=== PATIENT | male | born 1975 | race African-American/Black ===

== ENCOUNTER 2016-12-28 01:26 | Emergency (ER) | payer OTHER ==
[~2016-12-28 01:26] MED LIST: ANEXSIA 7.5/3251 TA1 PO
[2017-01-15] MEDS ORDERED: NEURONTIN300 MG PO (08:42)
[2017-01-15] MEDS ORDERED: OXYCODON HCL-1 UDTAB PO (10:10)
[2017-01-15] MEDS ORDERED: FERRO-TIME325 MG PO (10:11)
[2017-01-15] MEDS ORDERED: METOPROLOL TAR25 MG PO (10:11)
[2017-01-15] MEDS ORDERED: BUSPAR15 M2 PO (10:12)
[2017-01-15] MEDS ORDERED: REMERON15 MG PO (10:12)
[2017-01-15] MEDS ORDERED: CARTIA XT120 MG PO (10:13)
[2017-01-15] MEDS ORDERED: EASY-LAX100 MG PO (10:13)
[2017-01-15] MEDS ORDERED: NICOTINE1 EACH TD (10:14)
[2017-01-15] MEDS ORDERED: LEVALBUTER1.25 MG/2 INH (10:14)
== END 2016-12-28 01:44 | disposition home or self-care (01) ==
LOC: CED 01:26
DX: G62.9 Polyneuropathy, unspecified (principal); F17.200 Nicotine dependence, unspecified, uncomplicated
CPT/HCPCS: 99282

== ENCOUNTER → 2017-01-15 | Outpatient (CLI) | payer OTHER ==
[~2017-01-15] MED LIST changes: +BUSPAR15 M2 PO; +CARTIA XT120 MG PO; +EASY-LAX100 MG PO; +FERRO-TIME325 MG PO; +LEVALBUTER1.25 MG/2 INH; +METOPROLOL TAR25 MG PO; +NEURONTIN300 MG PO; +NICOTINE1 EACH TD; +OXYCODON HCL-1 UDTAB PO; +REMERON15 MG PO
--- NOTE | ~2017-01-15 | XA166 ---
[facility] A Service of [facility] RADIOLOGY TEXT RESULTS PATIENT: RENAN MADRID LOCATION: CIVR : 75 UNIT #: [id number] AGE: [address]: VINI JASON MD SEX: M ORDER DR: [id number] [facility] [address] [place], [place] [address] [id number] O MR#: [id number] Acc #: [id number] NAME: RENAN MADRID : 1975 SEX: M STUDY DATE/TIME: 01/15/2017 9:27 UNIT: [facility]IVR ROOM: STUDY DESCRIPTION: XA PICC Line Placement WO Port Attending Physician: Vini Jason M.D. Ordering Physician: Vini Jason M.D. Primary Care Physician: Marques Wharton M.D. MEDICAL IMAGING REPORT This report is preliminary unless electronic signature is present EXAM PICC line insertion. INDICATION 41-year-old male who needs IV access for chemotherapy. PRE-PROCEDURE The procedure was explained to the patient and/or patient customer loyalty representative including risks, benefits, potential complications and potential for alternative forms of treatment. Informed consent was obtained, and prior to initiating the procedure a formal timeout procedure was performed. PROCEDURE Using full standard sterile barrier technique, including caps, gowns, gloves, masks, as well as sterile skin preparation and standard sterile draping, the left arm was prepped and draped in the usual fashion, and real-time sterile ultrasound guidance was used to localize the left basilic vein and to confirm vessel patency. A hard copy ultrasound image was recorded. After local anesthesia with 1% Xylocaine, the vein was punctured using real-time sterile ultrasound guidance, and an 0.018 guidewire was advanced into the superior vena cava, using fluoroscopic guidance. A 5-Venezuelan 45 cm double-lumen PICC was then measured and deployed with the tip positioned in the superior vena cava. The position of the line was documented with a radiographic image. The line was secured in place with an adhesive dressing and an antibiotic patch was applied. Total fluoro time was 0.1 minutes. A single fluoroscopic spot image was obtained. the reference air kerma was 1 mGy. IMPRESSION 1. Successful placement of a 5-Venezuelan double-lumen PowerPICC via the left arm under ultrasound and fluoroscopic guidance. The tip of the STS. [facility] A Service of [facility] & [facility] RADIOLOGY TEXT RESULTS PATIENT: RENAN MADRID LOCATION: [facility] : 75 UNIT #: [id number] AGE: [address]: VINI JASON MD SEX: M ORDER DR: PICC is in good position in the superior vena cava. 2. A single fluoroscopic spot image was obtained. Dictated by... Evens Mariscal M.D. THIS IS AN ELECTRONICALLY VERIFIED REPORT Evens Mariscal M.D. at 01/15/2017 4:31 PM VIOLETTE/armin TD: 01/15/2017 16:00 JOB #: [id number] MEDICAL IMAGING REPORT Page 1 of 1 COPY
--- NOTE | ~2017-01-15 | XA80 ---
[facility] A Service of [facility] RADIOLOGY TEXT RESULTS PATIENT: RENAN MADRID LOCATION: [facility] : 75 UNIT #: [id number] AGE: [address]: VINI JASON MD SEX: M ORDER DR: [id number] [facility] [address] [place], [place] [address] [id number] O MR#: [id number] Acc #: [id number] NAME: RENAN MADRID : 1975 SEX: M STUDY DATE/TIME: 01/15/2017 10:11 UNIT: [facility]IV[facility] ROOM: STUDY DESCRIPTION: XA CVC Remove Tunneled Cath W Attending Physician: Vini Jason M.D. Ordering Physician: Vini Jason M.D. Primary Care Physician: Marques Wharton M.D. MEDICAL IMAGING REPORT This report is preliminary unless electronic signature is present EXAM Chest port removal. INDICATIONS 41-year-old male with eroded chest port. The port is eroded through the skin. There is no evidence for infection. The fluoro time was 0.1 minutes. The reference air kerma is 1 mGy. MEDICATIONS IV Versed and Fentanyl were utilized for conscious sedation. 30 minutes of sedation time was monitored by appropriately credentialed radiology nursing staff. The risks, benefits and alternatives of the procedure were discussed with the patient and informed consent was obtained. In the procedure room, a time out was performed confirming correct patient and procedure. All elements of maximum sterile-barrier technique utilized according to guidelines appropriate for the procedure. This included sterile caps, gowns, gloves, masks, drapes, 2% chlorhexadine for cutaneous antisepsis, and hand hygiene. TECHNIQUE/FINDINGS Inspection of the left chest port demonstrates that it has eroded through the skin. There is no evidence for purulent drainage or infection. The skin was anesthetized and a small incision was made over the chest port. The chest port was then removed in its entirety. There was a dime sized defect in the skin where the port had eroded through. This was packed with Iodaform gauze and a sterile dressing was applied. Spot image following explant confirmed that it was removed in its entirety. Patient will be brought back to the department in 2 days for a wound check. IMPRESSION Removal of chest port as described. [facility]. [facility] A Service of [facility] RADIOLOGY TEXT RESULTS PATIENT: RENAN MADRID LOCATION: [facility] : 75 UNIT #: [id number] AGE: [address]: VINI JASON MD SEX: M ORDER DR: Dictated by... Evens Mariscal M.D. THIS IS AN ELECTRONICALLY VERIFIED REPORT Evens Mariscal M.D. at 01/16/2017 4:34 PM ARS/to TD: 01/15/2017 16:32 JOB #: [id number] MEDICAL IMAGING REPORT Page 1 of 1 COPY
[2017-01-15 08:21] LABS: HEMATOCRIT 30.4 % (38.0-50.0); HEMOGLOBIN 10.1 gm/dL (13.0-16.0); MEAN CELL VOLUME 96.4 FL (83-96); MEAN CORPUSCULAR HEMOGLOBIN 32.1 PG (28-34); MEAN CORPUSCULAR HGB CONC 33.3 g/dL (30-36); MEAN PLATELET VOLUME 6.5 FL (6.5-11.5); RED BLOOD COUNT 3.15 X10e (3.90-5.60); RED CELL DISTRIBUTION WIDTH 24.4 % (11.0-15.5); WHITE BLOOD COUNT 8.1 X10e3 (4.0-10.5)
[2017-01-15 08:36] LABS: PARTIAL THROMBOPLASTIN TIME 24.7 SECONDS (23.5-31.3)
== END | disposition home or self-care (01) ==
LOC: CSSDAY 07:54
PROVIDERS: Internal Medicine Hematology & Oncology
DX: Z45.2 Encounter for adjustment and management of vascular access device (principal); C34.31 Malignant neoplasm of lower lobe, right bronchus or lung; R07.9 Chest pain, unspecified; C78.7 Secondary malignant neoplasm of liver and intrahepatic bile duct; R59.0 Localized enlarged lymph nodes; G47.00 Insomnia, unspecified; D50.9 Iron deficiency anemia, unspecified; I10 Essential (primary) hypertension; R53.83 Other fatigue; Z79.899 Other long term (current) drug therapy; Z79.891 Long term (current) use of opiate analgesic
CPT/HCPCS: 36415; 76937; 77001; 85027; 85610; 85730; C1751; J1642; J2250; J3010

== ENCOUNTER → 2017-01-17 | Outpatient (CLI) | payer OTHER ==
--- NOTE | ~2017-01-17 | XA231 ---
[facility] A Service of [facility] RADIOLOGY TEXT RESULTS PATIENT: RENAN MADRID LOCATION: [facility] : 75 UNIT #: [id number] AGE: [address]: Evens Mariscal MD SEX: M ORDER DR: [id number] [facility] [address] [place], [place] [address] [id number] O MR#: [id number] Acc #: [id number] NAME: RENAN MADRID : 1975 SEX: M STUDY DATE/TIME: 01/17/2017 11:18 UNIT: [facility] ROOM: STUDY DESCRIPTION: XA Consult Attending Physician: Evens Mariscal M.D. Referring Physician: Evens Mariscal M.D. Primary Care Physician: Marques Wharton M.D. MEDICAL IMAGING REPORT This report is preliminary unless electronic signature is present EXAM Port check. HISTORY Infected port pocket. FINDINGS There is no significant redness around the pocket. No pus could be expressed. The Iodoform gauze was pulled out and replaced with fresh Iodoform gauze. The patient is to follow up with another wound check on Friday. IMPRESSION Satisfactory healing of the port pocket. Iodoform gauze was exchanged. Dictated by... Santana Sarabia M.D. THIS IS AN ELECTRONICALLY VERIFIED REPORT Santana Sarabia M.D. at 01/17/2017 4:54 PM LUIS ENRIQUE/armin TD: 01/17/2017 12:56 JOB #: [id number] MEDICAL IMAGING REPORT Page 1 of 1 COPY
== END | disposition home or self-care (01) ==
LOC: CIVR 10:35
DX: Z48.89 Encounter for other specified surgical aftercare (principal)
CPT/HCPCS: 76140

== ENCOUNTER → 2017-01-20 | Outpatient (CLI) | payer OTHER ==
--- NOTE | ~2017-01-20 | XA231 ---
[facility] A Service of [facility] & [facility] RADIOLOGY TEXT RESULTS PATIENT: REANN TOVAR LOCATION: [facility] : 75 UNIT #: [id number] AGE: [address]: Santana Sarabia MD SEX: M ORDER DR: [id number] [facility] [address] [place], [place] [address] [id number] O MR#: [id number] Acc #: [id number] NAME: RENAN TOVAR : 1975 SEX: M STUDY DATE/TIME: 01/20/2017 11:25 UNIT: [facility] ROOM: STUDY DESCRIPTION: XA Consult Attending Physician: Santana Sarabia M.D. Referring Physician: Santana Sarabia M.D. Ordering Physician: Santana Sarabia M.D. Primary Care Physician: Marques Wharton M.D. MEDICAL IMAGING REPORT This report is preliminary unless electronic signature is present EXAM Wound care consult dated 01/20/2017 HISTORY Infected port. FINDINGS Mr. Tovar returns following packing is on the previous port site of 01/17/2017 due to port erosion and infection. The sterile dressing as well as the Iodoform gauze was removed. The study shows no purulent drainage in the cavity. The granulation tissue is apparent in the base of the wound. The patient was then placed on wet-to-dry dressings. He is to have Home Health Care see him and repack the dressings on Friday and Friday, and is to return in 7 days for a repeat assessment. Dictated by... Gurjit Rios M.D. THIS IS AN ELECTRONICALLY VERIFIED REPORT Gurjit Rios M.D. at 01/23/2017 12:00 PM CHAYA/peace TD: 01/20/2017 19:42 JOB #: [id number] MEDICAL IMAGING REPORT Page 1 of 1 COPY
== END | disposition home or self-care (01) ==
LOC: CIVR 10:46
DX: Z48.89 Encounter for other specified surgical aftercare (principal)
CPT/HCPCS: 76140

== ENCOUNTER → 2017-01-27 | Outpatient (CLI) | payer OTHER ==
--- NOTE | ~2017-01-27 | XA231 ---
[facility] A Service of [facility] & [facility] RADIOLOGY TEXT RESULTS PATIENT: RENAN MADRID LOCATION: [facility] : 75 UNIT #: [id number] AGE: [address]: Ade Castellanos MD SEX: M ORDER DR: [id number] [facility] [address] [place], [place] [address] [id number] O MR#: [id number] Acc #: [id number] NAME: RENAN MADRID : 1975 SEX: M STUDY DATE/TIME: 01/27/2017 13:33 UNIT: [facility] ROOM: STUDY DESCRIPTION: XA Consult Attending Physician: Ade Castellanos M.D. Ordering Physician: Ade Castellanos M.D. Primary Care Physician: Marques Wharton M.D. MEDICAL IMAGING REPORT This report is preliminary unless electronic signature is present EXAM MediPort check INDICATION Mr. Madrid is a 41-year-old gentlemen who underwent removal of the MediPort which had eroded through the skin. The wound was left open and has been packed with wet to dry dressings. He returns for routine wound check. FINDINGS Patient's dressing was removed. This yielded some fibrinous exudate on the dressing itself. However, the wound site is pink and granulating nicely. No surrounding erythema is seen. Mr. Madrid's round appears to be healing nicely. We will continue wet to dry dressings. He will return for wound check on February 03, 2017. Dictated by... Ade Castellanos M.D. THIS IS AN ELECTRONICALLY VERIFIED REPORT Ade Castellanos M.D. at 01/29/2017 12:21 PM APRIL/ghulam TD: 01/28/2017 10:28 JOB #: [id number] MEDICAL IMAGING REPORT Page 1 of 1 COPY
== END | disposition home or self-care (01) ==
LOC: CIVR 12:33
DX: Z51.89 Encounter for other specified aftercare (principal)
CPT/HCPCS: 76140

== ENCOUNTER → 2017-01-27 | Outpatient (CLI) | payer OTHER ==
--- NOTE | ~2017-01-27 | CT55 ---
[facility] A Service of [facility] RADIOLOGY TEXT RESULTS PATIENT: RENAN MADRID LOCATION: [facility] : 75 UNIT #: [id number] AGE: [address]: VINI JASON MD SEX: M ORDER DR: [id number] [place] [id number] [facility] [place], [place] [address] [id number] O MR#: [id number] Acc #: [id number] NAME: RENAN MADRID : 1975 SEX: M STUDY DATE/TIME: 01/27/2017 9:20 UNIT: [facility] ROOM: STUDY DESCRIPTION: CT Chest W Con Attending Physician: Vini Jason M.D. Ordering Physician: Vini Jason M.D. Primary Care Physician: Marques Wharton M.D. MEDICAL IMAGING REPORT This report is preliminary unless electronic signature is present EXAM CT chest with contrast INDICATIONS Restaging lung cancer. Observation for metastatic disease and response to therapy. PROCEDURE Contrast-enhanced CT of the chest. 100 mL of Isovue-[address] exam was performed with one or more of the following radiation dose reduction techniques: automatic exposure control, adjustment of mA and/or kV according to patient size, and iterative reconstruction. COMPARISON 10/02/2016 FINDINGS Significant emphysema. Dominant mass in the right apex is smaller, now approximately 4.0 x 2.5 cm, previously 6.7 x 6.1 cm. Redemonstration of extensive pleural-based metastatic disease as well as hilar and mediastinal adenopathy. Right perihilar mass measures 5.0 x 5.2 cm previously 8.1 x 6.8 cm. Pleural based disease in the right lung bases is slightly improved. Mediastinal adenopathy is slightly improved as well. Scattered sclerotic osseous metastatic disease throughout the thoracic spine and scattered throughout the ribs. No definite new pulmonary nodule is seen. IMPRESSION 1. Positive response to interval therapy. Dominant mass right apex as well as pleural-based metastatic disease in the right chest is slightly smaller. Hilar and mediastinal adenopathy is also smaller. Index measurements provided above. [facility] A Service of [facility] RADIOLOGY TEXT RESULTS PATIENT: RENAN MADRID LOCATION: [facility] : 75 UNIT #: [id number] AGE: [address]: VINI JASON MD SEX: M ORDER DR: 2. Refer to the separately dictated abdomen and pelvis CT for findings below the diaphragm. Dictated by... Jay Rockwell M.D. THIS IS AN ELECTRONICALLY VERIFIED REPORT Jay Rockwell M.D. at 01/28/2017 7:11 AM ERIBERTO/agusto TD: 01/27/2017 14:07 JOB #: [id number] MEDICAL IMAGING REPORT Page 1 of 1 COPY
--- NOTE | ~2017-01-27 | CT2 ---
[facility] A Service of [facility] RADIOLOGY TEXT RESULTS PATIENT: RENAN MADRID LOCATION: [facility] : 75 UNIT #: [id number] AGE: [address]: VINI JASON MD SEX: M ORDER DR: [id number] [place] [id number] [facility] [place], [place] [address] [id number] O MR#: [id number] Acc #: [id number] NAME: RENAN MADRID : 1975 SEX: M STUDY DATE/TIME: 01/27/2017 9:20 UNIT: [facility] ROOM: STUDY DESCRIPTION: CT Abd and Pelv W Cont Attending Physician: Vini Jason M.D. Ordering Physician: Vini Jason M.D. Primary Care Physician: Marques Wharton M.D. MEDICAL IMAGING REPORT This report is preliminary unless electronic signature is present EXAM CT abdomen and pelvis with contrast. INDICATION Restaging lung cancer. Observation for response to therapy and metastatic disease. PROCEDURE Contrast-enhanced CT of the abdomen and pelvis. 100 mL of Isovue-370. This CT exam was performed with one or more of the following radiation dose reduction techniques: automatic exposure control, adjustment of mA and/or kV according to patient size, and iterative reconstruction. COMPARISON 10/02/2016. FINDINGS ABDOMEN WITH CONTRAST: Segment 8 liver metastasis measures 2.3 cm, previously measuring up to 1.8 cm. There is possibly a tiny subcentimeter focus at the segment 7-8 junction, not appreciably changed from the previous study. Pleural versus peritoneal metastasis along the right hepatic lobe measures approximately 5.2 x 2.3 cm, previously 5.7 x 2.9 cm. No new liver lesion. No new adenopathy is seen in the abdomen. The spleen, kidneys, adrenal glands, pancreas unremarkable. There is a tiny stone in the gallbladder. Bowel loops are nondilated. Appendix is normal. PELVIS WITH CONTRAST: No pelvic adenopathy. There is diffuse sclerotic osseous metastatic disease throughout the included thoracic and lumbar spine as well as the pelvis. [facility] A Service of [facility] RADIOLOGY TEXT RESULTS PATIENT: RENAN MADRID LOCATION: [facility] : 75 UNIT #: [id number] AGE: [address]: VINI JASON MD SEX: M ORDER DR: IMPRESSION 1. Hepatic metastasis is slightly larger than on the prior. No evidence for new metastatic disease in the abdomen or pelvis. 2. Extensive sclerotic osseous metastatic disease. Dictated by... Jay Rockwell M.D. THIS IS AN ELECTRONICALLY VERIFIED REPORT Jay Rockwell M.D. at 01/28/2017 7:11 AM ERIBERTO/armin TD: 01/27/2017 13:47 JOB #: [id number] MEDICAL IMAGING REPORT Page 1 of 1 COPY
[2017-01-27 10:20] LABS: POC - CREATININE 0.77 mg/dL (0.64-1.27); POC - GFR >60.0 mL/min (>60)
== END | disposition home or self-care (01) ==
LOC: CCAT 08:35
PROVIDERS: Internal Medicine Hematology & Oncology
DX: C34.31 Malignant neoplasm of lower lobe, right bronchus or lung (principal); R07.9 Chest pain, unspecified; C78.7 Secondary malignant neoplasm of liver and intrahepatic bile duct; C79.51 Secondary malignant neoplasm of bone; R59.0 Localized enlarged lymph nodes
CPT/HCPCS: 71260; 74177; 82565; Q9967

== ENCOUNTER 2017-01-28 04:34 | Emergency (ER) | payer OTHER ==
[2017-01-28 04:52] LABS: BASOPHIL% 0.3 % (0-2.5); EOSINOPHIL# 0.1 X10e3 (0-0.7); EOSINOPHIL% 0.5 % (0.0-7.0); HEMATOCRIT 29.2 % (38.0-50.0); HEMOGLOBIN 9.8 gm/dL (13.0-16.0); LYMPHOCYTE# 0.6 X10e3 (1.0-3.5); LYMPHOCYTE% 5.4 % (17.0-45.0); MEAN CORPUSCULAR HEMOGLOBIN 33.3 PG (28-34); MEAN CORPUSCULAR HGB CONC 33.6 g/dL (30-36); MONOCYTE# 1.5 X10e3 (0-1.0); MONOCYTE% 13.3 % (3.0-12.0); NEUTROPHIL# 8.9 X10e3 (1.5-7.1); NEUTROPHIL% 80.5 % (40-75); PLATELET COUNT 171 X10e3 (140-420); RED BLOOD COUNT 2.95 X10e (3.90-5.60)
[2017-01-28 04:53] LABS: DIFF IND YES
[2017-01-28 05:01] LABS: ALBUMIN SERUM 3.1 g/dL (3.5-5.0); ALKALINE PHOSPHATASE 147 U/L (32-92); ALT (SGPT) 13 U/L (10-40); AST (SGOT) 32 U/L (10-42); BILIRUBIN, DIRECT 0.1 mg/dL (0.0-0.2); BILIRUBIN,INDIRECT 0.3 mg/dL (0.0-0.9); BILIRUBIN,TOTAL 0.4 mg/dL (0.2-2.0); BLOOD UREA NITROGEN <5 mg/dL (9-23); CARBON DIOXIDE 23 mmol/L (22-31); CHLORIDE 96 mmol/L (100-111); CREATININE SERUM 0.5 mg/dL (0.6-1.4); GLOM FILT RATE Estimated 156.1 mL/min (>60); GLUCOSE FASTING 90 mg/dL (70-110); LIPASE 14 U/L (22-51); POTASSIUM 3.5 mmol/L (3.5-5.1); PROTEIN TOTAL SERUM 7.7 g/dL (6.0-8.3); SODIUM 131 mmol/L (135-145)
[2017-01-28 05:06] LABS: URINE SOURCE CLEAN CATCH
[2017-01-28 05:09] LABS: PLATELET ESTIMATE NORMAL (NORMAL); STOMATOCYTE PRESENT
[2017-01-28 05:10] LABS: ANISOCYTOSIS SL
[2017-01-28 05:39] LABS: URINE APPEARANCE CLEAR; URINE COLOR YELLOW; URINE LEUKOCYTE ESTERASE NEG (NEG); URINE NITRATE NEG (NEG); URINE SPECIFIC GRAVITY 1.027 (1.003-1.035)
[2017-01-28 05:40] LABS: CULTURE INDICATED? NO; URBCS1 AUWI 0-2 /[HPF] (0-2); URINE BACTERIA AUWI NEG (NEGATIVE); URINE BILIRUBIN NEG (NEG); URINE BLOOD NEG (NEG); URINE GLUCOSE NORM (NEG); URINE KETONE TRACE (NEG); URINE PROTEIN 1+ (NEG); URINE SQUAMOUS EPITHELIAL CELL OCCAS /[HPF]; URINE UROBILINOGEN 0.2 MG/DL (NEG); UWBCS1 AUWI 0-2 (0-5)
== END 2017-01-28 06:37 | disposition home or self-care (01) ==
LOC: CED 04:34
DX: C79.51 Secondary malignant neoplasm of bone (principal); C34.90 Malignant neoplasm of unspecified part of unspecified bronchus or lung; F17.210 Nicotine dependence, cigarettes, uncomplicated; Z79.899 Other long term (current) drug therapy
CPT/HCPCS: 36415; 80048; 80076; 81003; 83690; 85025; 99284

== ENCOUNTER → 2017-02-03 | Outpatient (CLI) | payer OTHER ==
--- NOTE | ~2017-02-03 | XA231 ---
[facility] A Service of [facility] RADIOLOGY TEXT RESULTS PATIENT: RENAN MADRID LOCATION: [facility] : 75 UNIT #: [id number] AGE: [address]: Ade Castellanos MD SEX: M ORDER DR: [id number] [facility] [address] [place], [place] [address] [id number] O MR#: [id number] Acc #: [id number] NAME: RENAN MADRID : 1975 SEX: M STUDY DATE/TIME: 02/03/2017 10:41 UNIT: [facility] ROOM: STUDY DESCRIPTION: XA Consult Attending Physician: Ade Castellanos M.D. Ordering Physician: Ade Castellanos M.D. Primary Care Physician: Marques Wharton M.D. MEDICAL IMAGING REPORT This report is preliminary unless electronic signature is present EXAM Port check HISTORY Mr. Madrid is a 41-year-old man who underwent removal of his Mediport December because it had eroded through the skin. Was switched to wet-to-dry dressings as the wound did appear to have some necrotic debris within it. He returns for followup today. FINDINGS On today's examination the wound appears to be granulating nicely with no fibrinous exudate seen on today's study. The wound really does not require any additional debridement and I would suggest applying a small amount Iodoform gauze to the site without truly packing the wound to allow it to granulate in. He will return for follow up on Thursday February 08, 1917. Dictated by... Ade Castellanos M.D. THIS IS AN ELECTRONICALLY VERIFIED REPORT Ade Castellanos M.D. at 02/04/2017 12:55 PM APRIL/agusto TD: 02/04/2017 09:39 JOB #: [id number] MEDICAL IMAGING REPORT Page 1 of 1 COPY
== END | disposition home or self-care (01) ==
LOC: CIVR 10:32
DX: Z48.89 Encounter for other specified surgical aftercare (principal)
CPT/HCPCS: 76140

== ENCOUNTER → 2017-02-10 | Outpatient (CLI) | payer OTHER ==
--- NOTE | ~2017-02-10 | XA231 ---
[facility] A Service of [facility] RADIOLOGY TEXT RESULTS PATIENT: RENAN TOVAR LOCATION: [facility] : 75 UNIT #: [id number] AGE: [address]: Ade Castellanos MD SEX: M ORDER DR: [id number] [facility] [address] [place], [place] [address] [id number] O MR#: [id number] Acc #: [id number] NAME: RENAN TOVAR : 1975 SEX: M STUDY DATE/TIME: 02/10/2017 10:24 UNIT: [facility] ROOM: STUDY DESCRIPTION: XA Consult Attending Physician: Ade Castellanos M.D. Referring Physician: Ade Castellanos M.D. Ordering Physician: Ade Castellanos M.D. Primary Care Physician: Marques Wharton M.D. MEDICAL IMAGING REPORT This report is preliminary unless electronic signature is present EXAM Port incision check under fluoroscopy 02/10/2017 HISTORY Port infection. Mr. Tovar is a 41-year-old male who had a port removal a few weeks ago and was found have a deep ulcer. He has been followed weekly by the IR service. FINDINGS The port site continues to granulate in and decrease in size. Patient has no complaints. IMPRESSION Continued healing of port incision site. Dictated by... Gurjit Rios M.D. THIS IS AN ELECTRONICALLY VERIFIED REPORT Gurjit Rios M.D. at 02/10/2017 4:52 PM Nichole TD: 02/10/2017 15:12 JOB #: [id number] MEDICAL IMAGING REPORT Page 1 of 1 COPY
== END | disposition home or self-care (01) ==
LOC: CIVR 09:55
DX: Z48.89 Encounter for other specified surgical aftercare (principal)
CPT/HCPCS: 76140

== ENCOUNTER → 2017-04-01 | Outpatient (CLI) | payer OTHER ==
--- NOTE | ~2017-04-01 | CT2 ---
[facility] A Service of [facility] & [facility] RADIOLOGY TEXT RESULTS PATIENT: RENAN MADRID LOCATION: [facility] : 75 UNIT #: [id number] AGE: [address]: VINI JASON MD SEX: M ORDER DR: [id number] [facility] [address] [place], [place] [address] [id number] O MR#: [id number] Acc #: [id number] NAME: RENAN MADRID : 1975 SEX: M STUDY DATE/TIME: 04/01/2017 11:36 UNIT: [facility] ROOM: STUDY DESCRIPTION: CT Abd and Pelv W Cont Attending Physician: Vini Jason M.D. Referring Physician: Vini Jason M.D. Ordering Physician: Vini Jason M.D. Primary Care Physician: Marques Wharton M.D. MEDICAL IMAGING REPORT This report is preliminary unless electronic signature is present EXAM CT abdomen and pelvis 04/01/2017 INDICATIONS Lung cancer. Observation for malignant neoplasm. Status post chemotherapy and radiation therapy. TECHNIQUE Axial images were obtained through the abdomen and pelvis following oral and IV contrast administration. Multiplanar reformats were obtained. This CT exam was performed with one or more of the following radiation dose reduction techniques: automatic exposure control, adjustment of mA and/or kV according to patient size, and iterative reconstruction. COMPARISON Comparison is made with 01/27/2017. FINDINGS For description of findings in the lung bases, please see the chest CT report dictated separately. ABDOMEN: Again seen is a hypodense mass in segment VIII of the liver. Today, it measures about 2.5 x 2.6 cm. It previously measured about 2.3 x 2 cm. Prior studies suggested a potential adjacent smaller lesion. This is not clearly identifiable today. No other definite liver lesions are seen. The lesion adjacent to the dome of the liver involving the peritoneum or diaphragm is again seen. Today it measures about 5.4 x 2.8 cm. It was previously about 5.2 x 2.3 cm. There is a mass anterior to the liver that appears to be involving the chest wall. Today, it measures about 4.5 x 2.3 cm. It was previously about 4.4 x 2 cm. There is a lesion involving the right lateral 10th rib. It is seen on the prior study and may have slightly increased soft tissue associated with it. The remaining solid abdominal organs are normal. The gallbladder is STS. [facility] A Service of [facility] & [facility] RADIOLOGY TEXT RESULTS PATIENT: RENAN MADRID [facility] : 75 UNIT #: [id number] AGE: [address]: VINI JASON MD SEX: M ORDER DR: unremarkable. There is no retroperitoneal adenopathy. The GI tract is within normal limits. PELVIS: The appendix is normal, as is the remainder of the GI tract. Urinary bladder is normal. There is diffuse skeletal metastatic disease in the abdomen and pelvis. Within the pelvis, this is causing erosive changes in the sacrum, and the patient is at great risk for pathologic sacral fracture. The soft tissue component of the sacral metastasis may be slightly worse at 3.4 x 1.9 cm, where was previously 3.4 x 1.6 cm. IMPRESSION 1. There is worsening metastatic disease in the liver with enlargement of a lesion in segment 8. The area of soft tissue nodules, as detailed above, also appears slightly larger than on the prior study. Please note that for description of findings in the lung bases, please see the chest CT report from today. 2. Widespread osseous metastatic disease is again seen. Patient is at risk for pathologic fracture of the sacrum. Soft tissue component of the sacral metastasis is probably slightly worsened from prior. Dictated by... Santana Gonzalez Jr., M.D. THIS IS AN ELECTRONICALLY VERIFIED REPORT Santana Gonzalez Jr., M.D. at 04/02/2017 8:03 AM FENG/twyla TD: 04/01/2017 19:13 JOB #: [id number] MEDICAL IMAGING REPORT Page 1 of 1 COPY
--- NOTE | ~2017-04-01 | CT55 ---
[facility] A Service of [facility] & [facility] RADIOLOGY TEXT RESULTS PATIENT: RENAN MADRID LOCATION: [facility] : 75 UNIT #: [id number] AGE: [address]: VINI JASON MD SEX: M ORDER DR: [id number] [facility] [address] [place], [place] [address] [id number] O MR#: [id number] Acc #: [id number] NAME: RENAN MADRID : 1975 SEX: M STUDY DATE/TIME: 04/01/2017 13:26 UNIT: [facility] ROOM: STUDY DESCRIPTION: CT Chest W Con Attending Physician: Vini Jason M.D. Referring Physician: Vini Jason M.D. Ordering Physician: Vini Jason M.D. Primary Care Physician: Marques Wharton M.D. MEDICAL IMAGING REPORT This report is preliminary unless electronic signature is present EXAM CT chest with contrast DATE: 04/01/2017 HISTORY 41-year-old male with history of right lung cancer. Observation metastatic disease. Restaging. Chemotherapy completed approximately 1 month ago. Radiation therapy completed a few months ago per patient. COMPARISON CT chest with contrast 01/27/2017. PROCEDURE 5 mm axial images through the chest after IV contrast administration. Sagittal coronal reformed images were obtained. The CT exam was performed with one or more of the following radiation dose reduction techniques: automatic exposure control, adjustment of mA and/or kV according to patient size, and iterative reconstruction. FINDINGS The right hilar-right paramediastinal lung mass is larger. Today it measures 6.2 x 5.2 cm compared to 5.2 x 5.0 cm on 01/27/2017. It encases the right superior pulmonary vein. A right lower lobe paramediastinal lung mass abutting the IVC is stable to minimally larger, currently measuring 8.1 x 3.5 cm compared to 7.8 x 3.4 cm previously. A pleural-based mass in the right apex is stable to slightly smaller, measuring 3.7 x 2.4 cm compared to 4.0 x 2.5 cm previously. Extensive bulky mediastinal adenopathy is redemonstrated. A dominant brad aggregate in the subcarinal region extending into the azygoesophageal recess appears very slightly increased, 3.0 x 4.6 cm in STS. [facility] [place] A Service of [facility] RADIOLOGY TEXT RESULTS PATIENT: RENAN MADRID LOCATION: [facility] : 75 UNIT #: [id number] AGE: [address]: VINI JASON MD SEX: M ORDER DR: the subcarinal region today compared to 4.1 x 2.8 cm previously. Prevascular adenopathy is slightly increased at 1.9 x 2.6 cm compared to 2.4 x 1.6 cm previously. Right paratracheal adenopathy is stable. Bulky adenopathy within the right cardiophrenic fat pad increased, 3.9 x 2.9 cm compared to 3.3 x 2.4 cm previously. Extensive pleural-based metastatic disease particularly within the lower thorax, again noted. The pleural-based metastasis at the right lateral margin of the diaphragm measures 2.7 cm thickness compared to 0.3 cm previously. A pleural-based lesion in the right lower lung zone measures 2.4 x 1.2 cm compared to 2.0 x 1.1 cm previously. Noncalcified pulmonary nodules are scattered throughout both lungs, and these appear largely unchanged in size and morphology, no definite new pulmonary nodules are identified. Bulky right supraclavicular adenopathy slightly increased, 1.9 cm short axis compared 1.7 cm previously. Moderately advanced emphysematous changes are present. No pericardial effusion or pleural effusion. 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 IMPRESSION 1. With the exception of slight interval decrease in the right apical lung mass, extensive metastatic disease within the chest has progressed since the 01/27/[address] abdomen and pelvis performed on the same date has been dictated separately. Dictated by... Risa Meyer M.D. THIS IS AN ELECTRONICALLY VERIFIED REPORT Risa Meyer M.D. at 04/03/2017 7:11 AM [facility]/agusto TD: 04/02/2017 09:46 JOB #: [id number] MEDICAL IMAGING REPORT Page 1 of 1 COPY
[2017-04-01 13:50] LABS: POC - CREATININE 0.73 mg/dL (0.64-1.27); POC - GFR >60.0 mL/min (>60)
== END | disposition home or self-care (01) ==
LOC: CCAT 11:27
PROVIDERS: Internal Medicine Hematology & Oncology
DX: C34.31 Malignant neoplasm of lower lobe, right bronchus or lung (principal); R07.9 Chest pain, unspecified; C78.7 Secondary malignant neoplasm of liver and intrahepatic bile duct; C79.51 Secondary malignant neoplasm of bone; R91.8 Other nonspecific abnormal finding of lung field; Z71.6 Tobacco abuse counseling
CPT/HCPCS: 71260; 74177; 82565; Q9967

== ENCOUNTER 2017-04-19 00:46 | Emergency (ER) | payer OTHER | END 2017-04-19 01:15 | disposition left against medical advice (07) | LOC: CED 00:46 | DX: Z53.21 Procedure and treatment not carried out due to patient leaving prior to being seen by health care provider (principal) ==